=== PATIENT | female | born 1975 | race Caucasian/White ===

== ENCOUNTER 2016-09-21 10:07 | Day surgery (SDC) | payer MEDICAID ==
[2016-09-21] MEDS ORDERED: DOXYCYCLINE INJ 100 MG in NS 250 ML IV ONE (10:30)
[2016-09-21] MEDS ORDERED: LR 1,000 ML IV SCH (10:30)
[2016-09-21] MEDS ORDERED: LIDOCAINE 1% 30 ML SDV ONE (12:02)
[2016-09-21] MEDS ORDERED: fentaNYL 100 MCG/2 ML INJ ONE (12:03)
[2016-09-21] MEDS ORDERED: PROPOFOL 200 MG/20 ML VIAL ONE ×2 (12:03→12:04)
[2016-09-21] MEDS ORDERED: KETOROLAC 30 MG/1 ML SDV ONE (12:04)
[2016-09-21] MEDS ORDERED: LIDOCAINE 2% 5 ML SDV ONE (12:04)
[2016-09-21] MEDS ORDERED: DEXAMETHASONE 4 MG/ML VIAL ONE (12:04)
[2016-09-21] MEDS ORDERED: ONDANSETRON 4 MG/2 ML VIAL ONE (12:04)
[2016-09-21] MEDS ORDERED: METOCLOPRAMIDE 10 MG/2 ML VIAL ONE (12:04)
[2016-09-21] MEDS ORDERED: MIDAZOLAM 2 MG/2 ML VIAL ONE (12:06)
[2016-09-21] MEDS ORDERED: LIDOCAINE 1% 30 ML SDV IF ONE (12:30)
--- NOTE | 2016-09-21 12:52 | SUROPNOTE ---
[facility] Operative Report - [facility] Procedure Note 09/21/16 Procedure: suction D&C under ultrasound guidance Preoperative diagnosis: embryonic demise at 6w2d Postoperative diagnosis: Same Anesthesia: MAC Anesthesiologist: Germaine Surgeon: Zak EBL: Minimal Specimen: Products of conception Findings: Small anteverted uterus. POC consistent with gestational age. Thin endometrial stripe at end of procedure. Complications: None Outcome: Stable, to PACU Indications: Patient is a 41 year old with a missed measuring 6w2d. She desires surgical management. She is Rh+. She declines genetic testing. Details of procedure: Patient was brought to the operating room and MAC anesthesia was induced. she was prepped and draped in the normal sterile fashion in dorsal lithotomy with radha stirrups. Her bladder had already been emptied. A time out was performed. The speculum was placed and the anterior lip of the cervix was grasped with a single toothed tenaculum. A paracervical block was performed with 10 ml 1% plain lidocaine. The cervix was sequentially dilated to 8 mm using hegar dilators. The 7 mm curette was advanced into the uterus under direct ultrasound guidance and the uterus was emptied completely. A gritty texture was noted throughout the uterus. All instruments were removed and hemostasis was noted. The products were examined and the gestational sac was identified. The patient was awakened and brought to the PACU in good condition. She was advised to follow pelvic rest for 2 weeks. Routine precautions were discussed. She will follow-up in the office in 2 weeks. Angelina Crespo MD
== END 2016-09-21 13:50 | disposition home or self-care (01) ==
LOC: FOBOP 10:07
PROVIDERS: ATTEND Obstetrics & Gynecology
PROC: 10D18ZZ Extraction of Products of Conception, Retained, Via Natural or Artificial Opening Endoscopic (ICD-10-PCS; principal; 2016-09-21)
DX: O02.1 Missed abortion (principal)
CPT/HCPCS: J1100; J1885; J2250; J2405; J2704; J2765; J3010

== ENCOUNTER → 2016-10-23 | Outpatient (CLI) | payer MEDICAID | LOC: FIMAGING 11:31 | PROVIDERS: ATTEND Obstetrics & Gynecology | DX: Z31.69 Encounter for other general counseling and advice on procreation (principal); N04.1 Nephrotic syndrome with focal and segmental glomerular lesions ==

== ENCOUNTER → 2018-07-07 | Outpatient (CLI) | payer BC | LOC: FIMAGING 07:25 | PROVIDERS: ATTEND Obstetrics & Gynecology | DX: O09.522 Supervision of elderly multigravida, second trimester (principal); O44.22 Partial placenta previa NOS or without hemorrhage, second trimester; Z3A.20 20 weeks gestation of pregnancy ==

== ENCOUNTER → 2018-08-04 | Outpatient (CLI) | payer BC | LOC: FIMAGING 12:27 | PROVIDERS: ATTEND Obstetrics & Gynecology | DX: O09.522 Supervision of elderly multigravida, second trimester (principal); Z3A.20 20 weeks gestation of pregnancy ==

== ENCOUNTER → 2018-09-23 | Outpatient (CLI) | payer BC | LOC: FIMAGING 12:51 | PROVIDERS: ATTEND Obstetrics & Gynecology | DX: O09.523 Supervision of elderly multigravida, third trimester (principal); Z3A.31 31 weeks gestation of pregnancy ==